=== PATIENT | female | born 1955 | race American Indian/Alaskan Native ===

== ENCOUNTER 2017-03-09 08:17 | Emergency (ER) | payer MEDICARE, OTHER ==
[2017-03-09 08:28] VITALS: BP 116/82
--- NOTE | 2017-03-09 09:32 | Emergency Department Report ---
ED ENT HPI - General Chief complaint: Pain General Stated complaint: FACE SWOLLEN Time Seen by Provider: 03/09/17 09:18 Source: patient Mode of arrival: Ambulatory Limitations: No Limitations - History of Present Illness Initial comments: This is a 61-year-old female well-nourished with nontoxic or ill in appearance that presents with toothache and subjective right facial swelling 1 month. Patient stated has been having a toothache for a month and is getting slightly facial swelling. Patient denies any fever, chills, numbness, tingling, drooling , difficulty breathing, difficulty swallowing, chest pain, shortness of breath, stiff neck, nausea, vomiting, headache, blurry vision or visual changes. Denies pus or drainage. MD complaint: tooth pain -: Gradual, month(s) (1) Location: tooth # (multiple) Severity: mild Severity scale (0 -10): 7 Quality: other (throbbing) Consistency: constant Improves with: none Worsens with: none Context- Dental: history of dental caries, poor dental care Associated Symptoms: gum swelling, toothache. denies: fever, cough, pain with swallowing, sore throat, tinnitus, hearing loss, discharge from ear, rhinorrhea - Related Data Home Medications Medication Instructions Recorded Confirmed Last Taken Citalopram [Celexa] 20 mg PO QDAY 06/29/13 06/29/13 Unknown Dicyclomine [Bentyl] 10 mg PO ONCE 06/29/13 06/29/13 Unknown Estrogens,Esterified [Menest] 0.3 mg PO DAILY 06/29/13 06/29/13 Unknown Ibuprofen [Motrin] 800 mg PO TID PRN 06/29/13 06/29/13 Unknown Ondansetron [Zofran Oral Liq] 8 mg PO 06/29/13 06/29/13 Unknown Oxybutynin [Ditropan] 5 mg PO 06/29/13 06/29/13 Unknown QUEtiapine [SEROquel] 25 mg PO 06/29/13 06/29/13 Unknown clonazePAM [Clonazepam] 0.5 mg PO BID PRN 06/29/13 06/29/13 Unknown diphenhydrAMINE [Benadryl] 50 mg PO QHS PRN 06/29/13 06/29/13 Unknown Previous Rx's Medication Instructions Recorded Last Taken Type HYDROcodone/APAP 5-325 [[place] 1 each PO Q6HR PRN #20 tablet 10/11/14 Unknown Rx 5-325 mg TAB] Chlorhexidine Mouthwash [Peridex] 15 ml MM BID #1 bottle 03/09/17 Unknown Rx Clindamycin [Clindamycin CAP] 450 mg PO Q8HR 7 Days 03/09/17 Unknown Rx Ibuprofen [Motrin 600 MG tab] 600 mg PO Q8H PRN #20 tablet 03/09/17 Unknown Rx predniSONE [Deltasone] 20 mg PO BID #10 tab 03/09/17 Unknown Rx Allergies Allergy/AdvReac Type Severity Reaction Status Date / Time azithromycin Allergy Rash Verified 10/11/14 12:00 [From Zithromax Z-Shon] lamotrigine Allergy Rash Verified 10/11/14 12:00 nitrofurantoin Allergy Rash Verified 06/29/13 16:01 macrocrystalline [From Macrodantin] Penicillins Allergy Rash Verified 06/29/13 16:01 ranitidine HCl [From Zantac] Allergy Rash Verified 06/29/13 16:01 sulfamethoxazole Allergy Rash Verified 06/29/13 16:01 [From Bactrim] trimethoprim [From Bactrim] Allergy Rash Verified 06/29/13 16:01 ED Dental HPI - General Chief complaint: Pain General Stated complaint: FACE SWOLLEN Time Seen by Provider: 03/09/17 09:18 Source: patient Mode of arrival: Ambulatory Limitations: No Limitations - Related Data Home Medications Medication Instructions Recorded Confirmed Last Taken Citalopram [Celexa] 20 mg PO QDAY 06/29/13 06/29/13 Unknown Dicyclomine [Bentyl] 10 mg PO ONCE 06/29/13 06/29/13 Unknown Estrogens,Esterified [Menest] 0.3 mg PO DAILY 06/29/13 06/29/13 Unknown Ibuprofen [Motrin] 800 mg PO TID PRN 06/29/13 06/29/13 Unknown Ondansetron [Zofran Oral Liq] 8 mg PO 06/29/13 06/29/13 Unknown Oxybutynin [Ditropan] 5 mg PO 06/29/13 06/29/13 Unknown QUEtiapine [SEROquel] 25 mg PO 06/29/13 06/29/13 Unknown clonazePAM [Clonazepam] 0.5 mg PO BID PRN 06/29/13 06/29/13 Unknown diphenhydrAMINE [Benadryl] 50 mg PO QHS PRN 06/29/13 06/29/13 Unknown Previous Rx's Medication Instructions Recorded Last Taken Type HYDROcodone/APAP 5-325 [[place] 1 each PO Q6HR PRN #20 tablet 10/11/14 Unknown Rx 5-325 mg TAB] Chlorhexidine Mouthwash [Peridex] 15 ml MM BID #1 bottle 03/09/17 Unknown Rx Clindamycin [Clindamycin CAP] 450 mg PO Q8HR 7 Days 03/09/17 Unknown Rx Ibuprofen [Motrin 600 MG tab] 600 mg PO Q8H PRN #20 tablet 03/09/17 Unknown Rx predniSONE [Deltasone] 20 mg PO BID #10 tab 03/09/17 Unknown Rx Allergies Allergy/AdvReac Type Severity Reaction Status Date / Time azithromycin Allergy Rash Verified 10/11/14 12:00 [From Zithromax Z-Shon] lamotrigine Allergy Rash Verified 10/11/14 12:00 nitrofurantoin Allergy Rash Verified 06/29/13 16:01 macrocrystalline [From Macrodantin] Penicillins Allergy Rash Verified 06/29/13 16:01 ranitidine HCl [From Zantac] Allergy Rash Verified 06/29/13 16:01 sulfamethoxazole Allergy Rash Verified 06/29/13 16:01 [From Bactrim] trimethoprim [From Bactrim] Allergy Rash Verified 06/29/13 16:01 ED Review of Systems ROS: Stated complaint: FACE SWOLLEN Other details as noted in HPI Constitutional: denies: chills, fever Eyes: denies: eye pain, eye discharge, vision change ENT: denies: ear pain, throat pain Respiratory: denies: cough, shortness of breath, wheezing Cardiovascular: denies: chest pain, palpitations Endocrine: no symptoms reported Gastrointestinal: denies: abdominal pain, nausea, diarrhea Genitourinary: denies: urgency, dysuria, discharge Musculoskeletal: denies: back pain, joint swelling, arthralgia Skin: denies: rash, lesions Neurological: denies: headache, weakness, paresthesias Psychiatric: denies: anxiety, depression Hematological/Lymphatic: denies: easy bleeding, easy bruising ED Past Medical Hx - Past Medical History Previous Medical History?: Yes Hx Seizures: Yes Hx Psychiatric Treatment: Yes ([facility] for bipolar) Additional medical history: Hx. of SVT - Surgical History Past Surgical History?: Yes Additional Surgical History: Hysterectomy - Social History Smoking Status: Current Every Day Smoker Substance Use Type: Prescribed - Medications Home Medications: Home Medications Medication Instructions Recorded Confirmed Last Taken Type Citalopram [Celexa] 20 mg PO QDAY 06/29/13 06/29/13 Unknown History Dicyclomine [Bentyl] 10 mg PO ONCE 06/29/13 06/29/13 Unknown History Estrogens,Esterified [Menest] 0.3 mg PO DAILY 06/29/13 06/29/13 Unknown History Ibuprofen [Motrin] 800 mg PO TID PRN 06/29/13 06/29/13 Unknown History Ondansetron [Zofran Oral Liq] 8 mg PO 06/29/13 06/29/13 Unknown History Oxybutynin [Ditropan] 5 mg PO 06/29/13 06/29/13 Unknown History QUEtiapine [SEROquel] 25 mg PO 06/29/13 06/29/13 Unknown History clonazePAM [Clonazepam] 0.5 mg PO BID PRN 06/29/13 06/29/13 Unknown History diphenhydrAMINE [Benadryl] 50 mg PO QHS PRN 06/29/13 06/29/13 Unknown History HYDROcodone/APAP 5-325 [[place] 1 each PO Q6HR PRN #20 tablet 10/11/14 Unknown Rx 5-325 mg TAB] Chlorhexidine Mouthwash [Peridex] 15 ml MM BID #1 bottle 03/09/17 Unknown Rx Clindamycin [Clindamycin CAP] 450 mg PO Q8HR 7 Days 03/09/17 Unknown Rx Ibuprofen [Motrin 600 MG tab] 600 mg PO Q8H PRN #20 tablet 03/09/17 Unknown Rx predniSONE [Deltasone] 20 mg PO BID #10 tab 03/09/17 Unknown Rx ED Physical Exam - General Limitations: No Limitations General appearance: alert, in no apparent distress - Head Head exam: Present: atraumatic, normocephalic, normal inspection - Eye Eye exam: Present: normal appearance, PERRL, EOMI. Absent: scleral icterus, conjunctival injection, nystagmus Pupils: Present: normal accommodation - Expanded Eye Exam Expanded Eyelids: Normal Inspection: Right Pupils: Regular, Round: Right, Reactive: Right Sclera/Conjunctival: Normal Inspection: Right - ENT ENT exam: Present: normal exam, normal orophraynx, mucous membranes moist, TM's normal bilaterally, normal external ear exam - Expanded ENT Exam Expanded Mouth exam: Present: normal external inspection, tongue normal. Absent: drooling, trismus, muffled voice, tongue elevation, laceration Teeth exam: Present: dental caries (multiple), fractured tooth # (multiple 7,8,9 ,10,11), gingival enlargement Throat exam: Positive: normal inspection. Negative: tonsillar erythema, tonsillomegaly, tonsillar exudate, R peritonsillar mass, L peritonsillar mass - Neck Neck exam: Present: normal inspection, full ROM. Absent: tenderness, meningismus, lymphadenopathy, thyromegaly - Respiratory Respiratory exam: Present: normal lung sounds bilaterally. Absent: respiratory distress, wheezes, rales, rhonchi, stridor - Cardiovascular Cardiovascular Exam: Present: regular rate, normal rhythm, normal heart sounds. Absent: bradycardia, tachycardia, irregular rhythm, systolic murmur, diastolic murmur, rubs, gallop - GI/Abdominal GI/Abdominal exam: Present: soft, normal bowel sounds. Absent: distended, tenderness, guarding, rebound, rigid, diminished bowel sounds - Extremities Exam Extremities exam: Present: normal inspection, full ROM, normal capillary refill. Absent: tenderness, pedal edema, joint swelling, calf tenderness - Back Exam Back exam: Present: normal inspection, full ROM. Absent: tenderness, CVA tenderness (R), CVA tenderness (L), muscle spasm, paraspinal tenderness, vertebral tenderness, rash noted - Neurological Exam Neurological exam: Present: alert, oriented X3, CN II-XII intact, normal gait, reflexes normal - Psychiatric Psychiatric exam: Present: normal affect, normal mood - Skin Skin exam: Present: warm, dry, intact, normal color. Absent: rash - Other Other exam information: Negative Trismus. Very minimal right facial swelling noted near tooth 7 and 8. no pus or drainage noted. no dental abscess noted. ED Course Vital Signs 03/09/17 03/09/17 08:24 09:50 Temperature 98.4 F Pulse Rate 93 H 80 Respiratory 14 16 Rate Blood Pressure 116/82 O2 Sat by Pulse 98 100 Oximetry ED Medical Decision Making - Medical Decision Making Ed course: This is a 61-year-old female that presents with multiple dental caries slight facial swelling to right 1- after my physical exam, patient received Solu-mederol 40 mg IM 2- Patient received clindamycin 450 mg by mouth 3 days for 7 days and chlorhexidine mouthwash at the time of discharge. 3 patient was instructed to this full course of antibiotics as prescribed 4- patient also received prednisone 40 mg by mouth at the time of discharge 5- patient was instructed to follow up with a dentist in 24 hours 6- at time time of discharge, the patient does not seem toxic or ill in appearance. No acute signs of distress noted. Patient agrees to discharge treatment plan of care. No further questions noted by the patient. 7- As per up-to-date Clindamycin is lincomycin. No allergies stated to clindamycin as per pt. Critical care attestation.: If time is entered above; I have spent that time in minutes in the direct care of this critically ill patient, excluding procedure time. ED Disposition Clinical Impression: Dental caries, Gingivitis Disposition: [id number] TO HOME OR SELFCARE Is pt being admited?: No Does the pt Need Aspirin: No Condition: Stable Instructions: Clindamycin (By mouth), Ibuprofen (By mouth), Prednisone (By mouth), Dental Caries (ED), Gingivitis (ED) Additional Instructions: Follow-up with a dentist in 24 hours. Take medication as prescribed. Finish full course of antibiotics as prescribed. Prescriptions: Chlorhexidine Mouthwash [Peridex] 15 ml MM BID #1 bottle Clindamycin [Clindamycin CAP] 450 mg PO Q8HR 7 Days Ibuprofen [Motrin 600 MG tab] 600 mg PO Q8H PRN #20 tablet PRN Reason: Pain predniSONE [Deltasone] 20 mg PO BID #10 tab Referrals: PRIMARY CARE, [Primary Care Provider] - 3-5 Days [facility] [Outside] - 3-[address] [facility] [Outside] - 24 Hours Forms: Work/School Release Form(ED)
== END 2017-03-09 10:28 | disposition home or self-care (01) ==
LOC: ED 08:17
DX: K05.10 Chronic gingivitis, plaque induced (principal); K02.9 Dental caries, unspecified; F17.200 Nicotine dependence, unspecified, uncomplicated; Z88.1 Allergy status to other antibiotic agents; Z88.2 Allergy status to sulfonamides; Z88.0 Allergy status to penicillin; Z88.8 Allergy status to other drugs, medicaments and biological substances
CPT/HCPCS: 96372; 99283; J2920